=== PATIENT | female | born 1945 | race Native Hawaiian/Other Pacific Islander ===

== ENCOUNTER 2019-04-05 18:26 | Emergency (ER) | payer OTHER ==
[~2019-04-05] VITALS: Ht 165.1 cm; Wt 94.3 kg
--- NOTE | 2019-04-05 18:43 | NUR ---
LATHA [place] 40 From Home SOB x1day, TO ER BED 7, HOOKED TO MONITOR, PATIENT AOx4, CHANGED TO HOSP W, AWAITING MD CREWS.
--- NOTE | 2019-04-05 18:50 | NUR ---
JEAN-CLAUDE DELGADO AT BEDSIDE
[2019-04-05] MEDS ORDERED: ALBUTEROL FS 2.5 MG/0.5 ML VIAL.NEB NEB ONE (19:00)
[2019-04-05] MEDS ORDERED: IPRATROPIUM NEB FS 0.5 MG/2.5 ML AMPUL.NEB NEB ONE (19:00)
[2019-04-05 19:20] LABS: BASOPHILS % (AUTO) 0.1 % (0.0-2.0); EOSINOPHILS % (AUTO) 2.3 % (0.0-6.0); HEMATOCRIT 41 % (33-45); HEMOGLOBIN 13.5 g/dL (11.5-14.8); LYMPHOCYTES # (AUTO) 0.6 /CMM (0.8-4.8); MEAN CORPUSCULAR HGB CONC 33 g/dl (31.0-36.0); MEAN CORPUSCULAR VOLUME 89 fL (82-100); MONOCYTES # (AUTO) 0.3 /CMM (0.1-1.30); MONOCYTES % (AUTO) 3.8 % (2.0-12.0); NEUTROPHILS # (AUTO) 7.3 /CMM (1.8-8.9); NEUTROPHILS % (AUTO) 86.8 % (43.0-81.0); PLATELET COUNT (AUTO) 220 /CMM (150-450); RED BLOOD CELL COUNT(AUTO) 4.62 MIL/uL (4.0-5.2); WHITE BLOOD COUNT (AUTO) 8.4 K/uL (4.3-11.0)
[2019-04-05] MEDS ORDERED: ALBUTEROL FS 2.5 MG/3 ML VIAL.NEB ONE (19:38)
[2019-04-05] MEDS ORDERED: IPRATROPIUM NEB FS 0.5 MG/2.5 ML AMPUL.NEB ONE (19:38)
[2019-04-05 19:41] LABS: ALANINE AMINOTRANSFERASE 13 U/L (12-78); ALBUMIN 3.7 g/dL (3.4-5.0); ALKALINE PHOSPHATASE 112 U/L (46-116); ASPARTATE AMINOTRANSFERASE 16 U/L (15-37); B-TYPE NATRIURETIC PEPTIDE 1229 PG/ML (0-125); BILIRUBIN,TOTAL 0.9 mg/dL (0.2-1.0); CARBON DIOXIDE 22 mmol/L (21-32); CHLORIDE 108 mmol/L (98-107); CREATININE 1.6 mg/dL (0.6-1.3); GLUCOSE 132 mg/dL (74-106); POTASSIUM 3.8 mmol/L (3.5-5.1); SODIUM SERUM 140 mmol/L (136-145); TOTAL PROTEIN, SERUM 7.8 g/dL (6.4-8.2)
--- NOTE | 2019-04-05 19:43 | NUR ---
RT AT BEDSIDE, STARTED PATIENT W BREATHING TX
--- NOTE | 2019-04-05 19:45 | NUR ---
CLIENT SERVICES ASSOCIATE AT BEDSIDE
[2019-04-05 19:46] LABS: UREA NITROGEN, BLOOD 27 mg/dL (7-18)
--- NOTE | 2019-04-05 19:54 | NUR ---
urine sample sent to lab
[2019-04-05 19:56] LABS: APPEARANCE,URINE Cloudy (CLEAR); BILIRUBIN,URINE Negative (NEGATIVE); BLOOD, URINE Moderate Ery/uL (NEGATIVE); COLOR,URINE Yellow (YELLOW); KETONES,URINE Negative (NEGATIVE); LEUKOCYTE ESTERASE ,URINE Large (NEGATIVE); NITRITE, URINE Negative (NEGATIVE); PROTEIN,URINE 30 mg/dl (NEGATIVE); UGLUCOSE Negative (NEGATIVE); UROBILINOGEN,URINE 0.2 EU/dL (0.2)
[2019-04-05 20:10] LABS: BACTERIA,URINE Many /HPF (None Seen); SQUAMOUS EPITHELIAL CELL,UR Moderate /HPF (None Seen); WBC,URINE 21-50 /HPF (0-3)
[2019-04-05 20:15] LABS: CHOLESTEROL 107 mg/dL (<200); HDL CHOLESTEROL 46 mg/dL (40-60); LDL 52 mg/dL (0-99); TRIGLYCERIDES 74 mg/dL (30-150)
[2019-04-05] MEDS ORDERED: FUROSEMIDE 40 MG/4 ML VIAL ONE (21:57)
[2019-04-05] MEDS ORDERED: FUROSEMIDE 40 MG TABLET ONE (21:59)
[2019-04-05] MEDS ORDERED: FUROSEMIDE 40 MG TABLET PO ONE (22:00)
--- NOTE | 2019-04-05 22:42 | NUR ---
Patient discharged to home in stable condition. Written and verbal after care instructions given. Patient verbalizes understanding of instruction.
[2019-04-05 22:52] VITALS: BP 134/78
== END 2019-04-05 22:53 | disposition home or self-care (01) ==
LOC: ER 18:30
DX: R06.00 Dyspnea, unspecified (principal); I50.9 Heart failure, unspecified; J45.909 Unspecified asthma, uncomplicated; I48.91 Unspecified atrial fibrillation; Z86.73 Personal history of transient ischemic attack (TIA), and cerebral infarction without residual deficits
CPT/HCPCS: 36415; 71045-TC; 80053-TC; 80061-TC; 81000-TC; 83735-TC; 83880; 84484-TC; 85025-TC; 87086-TC; 87186-TC; J1940